=== PATIENT | female | born 1970 | race Caucasian/White ===

== ENCOUNTER 2020-07-10 17:07 | Emergency (ER) | payer BC ==
[2020-07-10] MEDS ORDERED: Dexamethasone 4 MG TAB ONE (18:13)
[2020-07-10] MEDS ORDERED: diphenhydrAMINE 25 MG CAP ONE (18:13)
[2020-07-10] MEDS ORDERED: Famotidine 20 MG TAB ONE (18:13)
== END 2020-07-10 18:24 | disposition home or self-care (01) ==
LOC: MADERS 17:07
DX: L50.0 Allergic urticaria (principal); Z79.899 Other long term (current) drug therapy
CPT/HCPCS: 99282; J8540; Q0163

== ENCOUNTER 2022-06-13 16:57 | Emergency (ER) | payer BC | END 2022-06-13 19:07 | disposition home or self-care (01) | LOC: MADERS 16:57 | DX: T25.221A Burn of second degree of right foot, initial encounter (principal); T23.101A Burn of first degree of right hand, unspecified site, initial encounter; X14.1XXA Other contact with hot air and other hot gases, initial encounter; Y99.0 Civilian activity done for income or pay | CPT/HCPCS: 99283 ==

== ENCOUNTER 2024-03-16 15:39 | Emergency (ER) | payer BC, OTHER | END 2024-03-16 16:42 | disposition home or self-care (01) | LOC: MADERS 15:39 | DX: S83.91XA Sprain of unspecified site of right knee, initial encounter (principal); V89.2XXA Person injured in unspecified motor-vehicle accident, traffic, initial encounter ==

== ENCOUNTER 2024-04-19 09:34 | Emergency (ER) | payer BC | END 2024-04-19 11:08 | disposition home or self-care (01) | LOC: MADERS 09:34 | DX: M25.461 Effusion, right knee (principal); M25.551 Pain in right hip; M46.1 Sacroiliitis, not elsewhere classified; E66.01 Morbid (severe) obesity due to excess calories; V49.9XXA Car occupant (driver) (passenger) injured in unspecified traffic accident, initial encounter; Z79.899 Other long term (current) drug therapy | CPT/HCPCS: 72170; 99283 ==